=== PATIENT | male | born 1935 | race Caucasian/White ===

== ENCOUNTER 2021-05-17 23:58 | Emergency (ER) | payer MEDICARE ==
[~2021-05-17] VITALS: Ht 177.8 cm; Wt 84.4 kg
--- NOTE | 2021-05-18 00:03 | NUR ---
Dr. Mccullough at bedside, MSE in progress.
[2021-05-18] MEDS ORDERED: ACETAMINOPHEN ES 500 MG TABLET ONE (00:39)
[2021-05-18] MEDS ORDERED: ACETAMINOPHEN ES 500 MG TABLET PO ONE (00:45)
--- NOTE | 2021-05-18 00:48 | NUR ---
Pt taken to CT via kelly
--- NOTE | 2021-05-18 01:03 | NUR ---
pt returned from CT
[2021-05-18] MEDS ORDERED: ACET-2605 PO (03:14)
[2021-05-18] MEDS ORDERED: ACET1TAB23 PO (03:14)
--- NOTE | 2021-05-18 03:43 | NUR ---
Crutches dispensed. Pt instructed on proper use of crutches. Patient able to demonstrate correct use of crutches. Patient discharged to home in stable condition. Written and verbal after care instructions given. Patient verbalizes understanding of instructions. Stressed follow up or return to ER for worsening s/s. Pt assisted to car, picked up by . no SOB. no chest pain. AOx4
[2021-05-18 03:45] VITALS: BP 124/60
== END 2021-05-18 03:47 | disposition home or self-care (01) ==
LOC: ER 05-18 00:01
DX: M79.651 Pain in right thigh (principal)
CPT/HCPCS: 73700; A4663; A9150